=== PATIENT | female | born 1965 | race African-American/Black ===

== ENCOUNTER 2025-04-21 23:58 | Emergency (ER) | payer BC, OTHER ==
[~2025-04-21] VITALS: Ht 160 cm; Wt 82.0 kg
[2025-04-22 00:05] VITALS: O2SAT 98
[2025-04-22] MEDS: KETOROLAC 30MG/ML VIAL IM ONE (00:59)
[2025-04-22 02:44] VITALS: BP 140/86; PULSE 71; RESP 10; TEMP 36.7; O2SAT 98
== END 2025-04-22 03:20 | disposition home or self-care (01) ==
LOC: ER 23:58
DX: S39.012A Strain of muscle, fascia and tendon of lower back, initial encounter (principal); M25.561 Pain in right knee; M25.562 Pain in left knee; I10 Essential (primary) hypertension; Z96.653 Presence of artificial knee joint, bilateral; Z88.0 Allergy status to penicillin; V98.8XXA Other specified transport accidents, initial encounter; Y93.89 Activity, other specified; Y92.89 Other specified places as the place of occurrence of the external cause; Y99.8 Other external cause status
CPT/HCPCS: 99284; 72100; 73560; 96372; J1885